=== PATIENT | female | born 1975 | race Caucasian/White ===

== ENCOUNTER 2022-03-06 17:42 | Emergency (ER) | payer OTHER, SELFPAY ==
--- NOTE | ~2022-03-06 | CT_ITS ---
EXAMINATION: CT brain wo con DATE: 03/06/2022 20:42 INDICATION: syncope, HYPERTENSION . TECHNIQUE: Computed tomography (CT) of the head was performed without intravenous contrast. The mA wa s adjusted according to patient size. Iterative reconstruction technique was employed. The dose-lengt h product was 605.33 mGy-cm. COMPARISON: None FINDINGS: No acute intracranial hemorrhage or extra-axial fluid collection. No hydrocephalus, mass, or herniation. No acute ischemic infarct. Unremarkable dural venous sinus attenuation. No acute osseous abnormality. The aerated spaces are clear. 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 Mild atrophy and chronic white matter change. Atherosclerotic intracranial calcifications. IMPRESSION: No acute intracranial process. Reviewed, dictated and finalized at location K.
--- NOTE | ~2022-03-06 | XR_ITS ---
EXAMINATION: XR chest 1V Exam Date/Time: 03/06/2022 20:42 CDT HISTORY: syncope, hx htn and bronchitis Comparison: None available. RESULT: Lines, tubes, and devices: None. Lungs and pleura: Clear. Cardiomediastinal silhouette: Normal cardiomediastinal silhouette. Other: No acute osseous or upper abdominal finding. IMPRESSION: No acute cardiopulmonary process. Reviewed, dictated and finalized at location K.
--- NOTE | 2022-03-06 17:45 | ECG_ITS ---
Measurements Intervals [place] Rate: 73 P: 42 CO: 138 QRS: 5 QRSD: 91 T: 25 QT: 387 QTc: 427 Interpretive Statements SINUS RHYTHM NO PREVIOUS ECG AVAILABLE FOR COMPARISON Electronically Signed On 03-06-2022 19:44:09 CDT by Kanwal Melvin M.D.
[2022-03-06 17:52] VITALS: BP 194/98; PULSE 89; RESP 16; TEMP 37; O2SAT 99
[2022-03-06 18:04] LABS: Basophils Percent Auto 0.6 % (0.2-1.2); Eosinophils Absolute Auto 0.3 K/mm3 (0-0.3); Eosinophils Percent Auto 4.1 % (0-4.4); Hematocrit 43.4 % (37.0-47.0); Hemoglobin 14.4 g/dL (12.0-15.0); Immature Granulocyte Absolute 0.02 K/mm3 (0.00-0.031); Immature Granulocyte Percent A 0.3 % (0-0.5); Lymphocytes Absolute Auto 1.28 K/mm3 (0.9-3.2); Lymphocytes Percent Auto 19.6 % (18.3-44.2); Mean Corpuscular HGB Conc 33.2 g/dl (32-36); Mean Corpuscular Volume 90.4 fl (80-100); Mean Platelet Volume 9.8 fl (7.4-10.4); Monocytes Absolute Auto 0.8 K/mm3 (0.1-0.6); Monocytes Percent Auto 11.5 % (2.6-8.5); Neutrophils Absolute Auto 4.2 K/mm3 (1.3-6.7); Neutrophils Percent Auto 63.9 % (45.5-73.1); Platelet Count Result 198 k/mm3 (150-375); White Blood Count 6.5 K/mm3 (4.5-10.0)
[2022-03-06 18:13] LABS: Alanine Aminotransferase 187 U/L (6-35); Albumin Level 3.5 g/dL (3.5-5.1); Alkaline Phosphatase 112 U/L (38-126); Anion Gap 2 mmol/L (8-16); Aspartate Amino Transferase 100 U/L (14-36); Bilirubin,Total 0.3 mg/dL (0.2-1.3); Blood Urea Nitrogen 12 mg/dL (7-17); Calcium 8.5 mg/dL (8.4-10.2); Carbon Dioxide 29 mmol/L (22-30); Chloride 106 mmol/L (98-107); Estimated CRCL calculation 86 ml/min; Estimated Glomerular Filt Rate > 60; Glucose 81 mg/dL (65-110); Potassium 3.9 mmol/L (3.4-5.0); Sodium 137 mmol/L (137-145)
[2022-03-06 20:24] VITALS: BP 149/95; PULSE 82
[2022-03-06 20:26] VITALS: BP 161/103; BP 170/88; PULSE 69; PULSE 76
[2022-03-06 20:27] VITALS: BP 142/88; PULSE 73; RESP 20; TEMP 36.5; O2SAT 98
--- NOTE | 2022-03-06 20:30 | ED.SYNCOPE ---
HPI - Syncope General Chief Complaint: Syncope Stated Complaint: DIZZY, PASSING OUT' Time Seen by Provider: 03/06/22 19:56 History of Present Illness HPI narrative: pt says walking earlier today and passed out says has been happening a lot over the last few months and hasn't seen anyone for it, has tubal says not preg no f;nv/d/uri/cp/sob/abd pain/other neuro cahgnes/trauma/urine cahgnes denies etoh but does smoke and does use meth often says not daily. no wells/vision chagnes no neck/back changes Related Data Allergies Allergy/AdvReac Type Severity Reaction Status Date / Time codeine Allergy Unknown RASH Verified 03/06/22 21:33 Review of Systems Constitutional: Comments: CONSTITUTIONAL: Denies fever, chills, or sweats. say passed out no injury EYES: Denies visual changes, redness, or discharge. ENT: Denies rhinorrhea, congestion, sore throat, or otalgia. CARDIOVASCULAR: Denies chest pain, palpitations, or edema. RESPIRATORY: Denies cough or dyspnea. GASTROINTESTINAL: Denies abdominal pain, nausea, vomiting, or diarrhea. GENITOURINARY: Denies dysuria or hematuria. SKIN: Denies rash or itching. MUSCULOSKELETAL: Denies back pain, joint pain, or myalgia. NEUROLOGIC: Denies headache, numbness, or weakness. PSYCHIATRIC: Denies anxiety or depression. Exam Const: Other: APPEARANCE: Well appearing, no pain in distress, well-nourished. Head normocephalic atraumtaic. EYES: PERRLA/EOMI, conjunctivae very clear. NOSE: Normal no drainage EARS:TMS clear Shira Liu, with good light reflex. THROAT: Pharynx clear, no exudate. NECK: Supple. No adenopathy, no masses. RESPIRATORY: Airway patent, repsirations nonlabored. Clear to auscultation bilaterally, no rales, rhonchi, wheezing. CARDIOVASCULAR: Regular rate and rhythm without murmurs rubs or gallops. ABDOMINAL: Soft, nontender, nondistended, no hepatosplenomegally MUSCULOSKELETAl: Moves all extremities. Strenght/ROM intact, No edema, No calf tenderness. NEURO: Alert. Cranial nerves II through XII intact. Good gait. Good coordination SKIN:: Warm, dry. Normal Color PSYCHIATRIC: Normal affect/mood, normal interaction with parents. tearful when talking but good eye contact for me compared to initial triage note no s/h ideation Course Course Emergency Course: pt is not orthostatic at 2030 called lab at 210 abut add on tests not running will start but analyizer difficulties with etoh so may not get back for hours which is fine no etoh smell on pt doubtful cause just part of w/u Reevaluation(s) Reevaluation #1: pt good with plan, mom called asking if going home told her yes adn stated pt has lump on back so asked pt who states has been there for yrs right mid axillary no new changes doc in [place] told her sebacious cyst way back then looked at it and almost raquetball size nt semi solid nt and mobile no s/s infection explained likely this given there so long will refer pt to primary and surgeon given no docs and this longstnading issue, pt good with plan and home with abx for urine infection and we disucussed meth abuse not helping her symptoms pt aware needs to stop Vital Signs Vital signs: Vital Signs Temperature 37.0 C 03/06/22 17:52 Pulse Rate 89 03/06/22 17:52 Respiratory Rate 16 03/06/22 17:52 Blood Pressure 194/98 H 03/06/22 17:52 Pulse Oximetry 99 03/06/22 17:52 Oxygen Delivery Room Air 03/06/22 17:52 Temperature 36.5 C 03/06/22 20:27 Pulse Rate 73 03/06/22 20:27 Respiratory Rate 20 03/06/22 20:27 Blood Pressure 142/88 H 03/06/22 20:27 Pulse Oximetry 98 03/06/22 20:27 Oxygen Delivery Room Air 03/06/22 20:27 MDM - Syncope Lab Data Result diagrams: 03/06/22 17:56 03/06/22 17:56 Labs: Lab Results 03/06/22 03/06/22 03/06/22 Range/Units 17:56 17:56 21:06 WBC 6.5 (4.5-10.0) K/mm3 RBC 4.80 (4.2-5.4) M/mm3 Hgb 14.4 (12.0-15.0) g/dL Hct 43.4 (37.0-47.0) % MCV 90.4 (80-100) fl MCH
[2022-03-06 21:22] LABS: Creatine Kinase 25 U/L (30-135)
[2022-03-06 21:27] LABS: Ethanol < 10 mg/dL (<10)
[2022-03-06] MEDS: SODIUM CHLORIDE 0.9% IV 1,000 ML 999 ML IV CONT (21:45)
[2022-03-06 21:52] LABS: Appearance Urine Slightly Cloudy (Clear); Bilirubin Urine Negative (Negative); Blood Urine Negative (Negative); Color Urine Yellow (Yellow); Glucose Urine UA Negative (Negative); Ketones Urine Trace mg/dL (Negative); Leukocyte Esterase Ur Trace LEU/UL (Negative); Nitrate Urine Positive (Negative); Protein Urine Negative (Negative); Urobilinogen Urine 0.2 mg/dL (<2.0)
[2022-03-06 22:04] LABS: Bacteria Urine Trace /hpf; Mucus Urine Rare /lpf; RBC Urine 0-2 /hpf (0-2); Squamous Epithelial Cell Urine Many /hpf (Few); WBC Urine 16-20 /hpf
[2022-03-06 22:05] LABS: Add Urine Microscopic? YES
[2022-03-06 22:26] LABS: Thyroid Stimulating Hormone Reflex 0.846 uIU/mL (0.465-4.68)
[2022-03-06] MEDS: ACETAMINOPHEN 325 MG TABLET 650 MG PO (22:36)
[2022-03-06] MEDS: NITROFURANTOIN MONOHYD MACROCR 100 MG CAP PO (22:40)
[2022-03-06 22:43] LABS: Barbiturate Screen Urine Negative (Negative); Benzodiazepines Screen Urine Negative (Negative)
[2022-03-06 22:55] LABS: Cannabinoid Screen Urine Negative (Negative); Cocaine Screen Urine Negative (Negative); Methadone Screen Urine Negative (Negative); Opiate Screen Urine Negative (Negative); Phencyclidine Screen Urine Negative (Negative)
[2022-03-06 23:05] VITALS: BP 130/64; PULSE 77; RESP 18; O2SAT 97
[2022-03-06 23:16] LABS: Amphetamine Screen Urine Positive (Negative)
== END 2022-03-06 23:05 | disposition home or self-care (01) ==
PROVIDERS: Emergency Medicine; Emergency Provider Emergency Medicine
DX: R55 Syncope and collapse (principal); R22.2 Localized swelling, mass and lump, trunk; F15.10 Other stimulant abuse, uncomplicated
CPT/HCPCS: 36415; 70450; 71045; 80053; 80307; 81001; 81025; 82550; 84443; 85025; 87077; 87086; 87088; 87186; 93005; 96360; 99284; A9270; J7030

== ENCOUNTER 2023-07-21 12:47 | Emergency (ER) | payer OTHER, SELFPAY ==
[2023-07-21] VITALS (14 sets, daily range): BP systolic 160–205; BP diastolic 84–121; PULSE 70–85; RESP 16–20; TEMP 36.6–36.9; O2SAT 92–100
--- NOTE | ~2023-07-21 | CT_ITS ---
EXAMINATION: CT abdomen pelvis w con DATE: 07/21/2023 14:10 INDICATION: R flank pain radiating to midline and L flank TECHNIQUE: Computed tomography (CT) of the abdomen and pelvis was performed with 100 mL Omnipaque-350 intravenous contrast. Automated exposure control and iterative reconstruction technique were employe d. The dose-length product was 430.58 mGy-cm. COMPARISON: None. FINDINGS: Lower thorax: Unremarkable Liver: Normal. Biliary/Gallbladder: Gallbladder is normal. No bile duct dilation. Pancreas: No mass. Dilation of the main pancreatic duct up to 5 mm. Spleen: Normal. Adrenals:No mass. Kidneys: No suspicious mass, obstructing stone, or hydronephrosis. GI tract: Mild distal esophageal and gastric wall edema. No small or large bowel dilation. Normal brittani endix. Mesentery/Peritoneum: No ascites, mass, or free air. Retroperitoneum: No mass. Atherosclerotic abdominal aortic and/or arterial calcifications. Pelvis: Pelvic organs are within normal limits. Soft Tissues: Soft tissues and body wall unremarkable. Bones: No acute osseous finding. IMPRESSION: Mild esophagitis/gastritis. Dilated main pancreatic duct. No mass or obstructing stone detected. Correlate with pancreatic enzyme s. Reviewed, dictated and finalized at location K. E ADMINISTRATION SUPERVISOR IMPRESSION: Mild esophagitis/gastritis. Dilated main pancreatic duct. No mass or obstructing stone detected. Correlate with pancreatic enzymes.
--- NOTE | ~2023-07-21 | XR_ITS ---
EXAMINATION: XR chest 1V portable DATE: 07/21/2023 13:53 INDICATION: Cough and shortness of breath. TECHNIQUE: A single frontal view of the chest was obtained on 2 radiographs. COMPARISON: Chest single view 03/06/2022 FINDINGS: There is no pneumonia, pleural effusion, or pneumothorax. The heart size is normal. There i s an old healed fracture of left clavicle. IMPRESSION: 1. No acute cardiopulmonary disease. Reviewed, dictated and finalized at location A. ATOR
--- NOTE | 2023-07-21 13:22 | ED.BACK ---
HPI - Back Pain/Injury General Chief Complaint: Back Pain/Injury Stated Complaint: back pain Time Seen by Provider: 07/21/23 13:01 History of Present Illness HPI Narrative: 47-year-old female presenting with lower back pain. Patient states that for the last several days she has had flank pain that is worse on the right. States that it does radiate into her left flank. She complains of dysuria. No hematuria. No abdominal pain, nausea or vomiting, diarrhea, constipation. No chest pain or shortness of breath. States that she has had a cough for the last couple of days. No fevers or chills, numbness or weakness, leg swelling, rashes. Related Data Allergies Allergy/AdvReac Type Severity Reaction Status Date / Time codeine Allergy Unknown RASH Verified 07/21/23 12:50 Review of Systems Review of Systems: All systems reviewed & are unremarkable except as noted in HPI and below Exam Narrative: GENERAL: Disheveled, crying, cooperative HEAD: Normocephalic, atraumatic. EYES: PERRLA and EOMI. ENT: Mucous membranes moist. NECK: Supple. CHEST: Clear to auscultation. No respiratory distress. HEART: Regular rate and rhythm ABDOMEN: Soft, nontender, nondistended; mild bilateral CVA tenderness BACK: No midline tenderness EXTREMITIES: Normal range of motion. No edema. SKIN: Warm, dry, no rash. Large cyst left side of abdominal wall the patient states has been there for years NEURO: No focal deficits. Alert and oriented x3. PSYCH: Tearful Course Vital Signs Vital signs: Vital Signs Temperature 98.4 F 07/21/23 12:52 Pulse Rate 85 07/21/23 12:52 Respiratory Rate 16 07/21/23 12:52 Blood Pressure 205/121 H 07/21/23 12:52 Pulse Oximetry 97 07/21/23 12:52 Temperature 97.9 F 07/21/23 12:57 Pulse Rate 70 07/21/23 13:35 Respiratory Rate 16 07/21/23 13:35 Blood Pressure 166/87 H 07/21/23 15:16 Pulse Oximetry 100 07/21/23 15:17 Oxygen Delivery Room Air 07/21/23 12:57 MDM - Back Pain/Injury MDM Narrative Medical decision making narrative: 47-year-old female presenting with lower back pain. Patient is hypertensive, otherwise vitals are within normal limits. Exam remarkable for the above. Plan for blood work, CT abdomen pelvis, pain control, fluids. Blood work with mild leukocytosis. CT abdomen pelvis with mild esophagitis and dilated pancreatic duct. Her lipase is normal. She denies any abdominal pain. Only complaining of bilateral flank pain. There is no evidence of pyelonephritis. Her UA is concerning for UTI. She was given a dose of Keflex. Remainder of her work-up is unremarkable. Feel she is safe for outpatient management. Advised that she follow-up with her PCP and complete the antibiotics as prescribed. Discharged in stable condition. Differential Diagnosis Differential diagnosis: Likely strain of lumbar region, renal colic, pyelonephritis and other (UTI, lower back pain, dehydration, JENNIFFER) Medical Records Attestation: I reviewed the patient's medical records. Lab Data Attestation: I reviewed the patient's lab results. 07/21/23 13:30 07/21/23 13:30 Labs: Lab Results 07/21/23 07/21/23 07/21/23 Range/Units 13:27 13:30 16:08 WBC 10.4 H (4.5-10.0) K/mm3 RBC 5.40 (4.2-5.4) M/mm3 Hgb 16.6 H (12.0-15.0) g/dL Hct 50.1 H (37.0-47.0) % MCV 92.8 (80-100) fl MCH 30.7 (26-34) pg MCHC 33.1 (32-36) g/dl RDW 12.3 (11.5-14.5) % Plt Count 226 (150-375) k/mm3 MPV 10.2 (7.4-10.4) fl Immature Gran % (Auto) 0.3 (0-0.5) % Neut % (Auto) 68.5 (45.5-73.1) % Lymph % (Auto) 21.7 (18.3-44.2) % Mcdonald % (Auto) 6.4 (2.6-8.5) % Eos % (Auto) 2.6 (0-4.4) % Baso % (Auto) 0.5 (0.2-1.2) % Lymph # (Auto) 2.25 (0.9-3.2) K/mm3 Mcdonald # (Auto) 0.7 H (0.1-0.6) K/mm3 Eos # (Auto) 0.3 (0-0.3) K/mm3 Baso # (Auto) 0.1 (0.0-0.1) K/mm3 Abs Immat Gran (auto) 0.03 (0.00-0.031) K/mm3 Ab
[2023-07-21] MEDS: SODIUM CHLORIDE 0.9% IV 1,000 ML 999 ML IV CONT (13:33)
[2023-07-21] MEDS: KETOROLAC 30 MG/ML VIAL (*BKC) IV PUSH (13:34)
[2023-07-21] MEDS: HYDROmorphone HCL INJ (*CRX) 1 MG/ML SYR IV PUSH (13:34)
[2023-07-21 13:35] LABS: Basophils Absolute Auto 0.1 K/mm3 (0.0-0.1); Basophils Percent Auto 0.5 % (0.2-1.2); Eosinophils Absolute Auto 0.3 K/mm3 (0-0.3); Eosinophils Percent Auto 2.6 % (0-4.4); Hematocrit 50.1 % (37.0-47.0); Hemoglobin 16.6 g/dL (12.0-15.0); Immature Granulocyte Absolute 0.03 K/mm3 (0.00-0.031); Immature Granulocyte Percent A 0.3 % (0-0.5); Lymphocytes Absolute Auto 2.25 K/mm3 (0.9-3.2); Lymphocytes Percent Auto 21.7 % (18.3-44.2); Mean Corpuscular HGB Conc 33.1 g/dl (32-36); Mean Corpuscular Hemoglobin 30.7 pg (26-34); Mean Corpuscular Volume 92.8 fl (80-100); Mean Platelet Volume 10.2 fl (7.4-10.4); Monocytes Absolute Auto 0.7 K/mm3 (0.1-0.6); Monocytes Percent Auto 6.4 % (2.6-8.5); Neutrophils Absolute Auto 7.1 K/mm3 (1.3-6.7); Neutrophils Percent Auto 68.5 % (45.5-73.1); Platelet Count Result 226 k/mm3 (150-375); Red Cell Distribution Width 12.3 % (11.5-14.5); White Blood Count 10.4 K/mm3 (4.5-10.0)
[2023-07-21 13:51] LABS: Alanine Aminotransferase 21 U/L (6-35); Alkaline Phosphatase 96 U/L (38-126); Anion Gap 8 mmol/L (8-16); Aspartate Amino Transferase 28 U/L (14-36); Bilirubin,Total 0.5 mg/dL (0.2-1.3); Blood Urea Nitrogen 16 mg/dL (7-17); Calcium 9.3 mg/dL (8.4-10.2); Carbon Dioxide 26 mmol/L (22-30); Chloride 106 mmol/L (98-107); Estimated CRCL calculation 75 ml/min; Estimated Glomerular Filt Rate > 60; Glucose 102 mg/dL (65-110); Lipase 183 U/L (23-300); Sodium 140 mmol/L (137-145)
[2023-07-21 14:12] LABS: Influenza A QL RT-PCR Negative (Negative); Influenza B QL RT-PCR Negative (Negative); SARS-CoV-2 RNA PCR Negative (Negative)
[2023-07-21 16:19] LABS: Appearance Urine Clear (Clear); Bacteria Urine None Seen /hpf; Bilirubin Urine Negative (Negative); Blood Urine Trace (Negative); Color Urine Yellow (Yellow); Glucose Urine UA Negative (Negative); Ketones Urine Negative (Negative); Leukocyte Esterase Ur 1+ LEU/UL (Negative); Nitrate Urine Negative (Negative); Non Pathogenic Casts 0-2; Protein Urine Negative (Negative); RBC Urine 0-2 /hpf (0-2); Squamous Epithelial Cell Urine None seen /hpf (Few); Urobilinogen Urine 0.2 mg/dL (<2.0); WBC Urine 21-50 /hpf; pH Urine 6.5 (5.0-9.0)
[2023-07-21 16:29] LABS: Specific Grav Ur 1.046 (1.001-1.035)
[2023-07-21 16:30] LABS: Add Urine Microscopic? YES
[2023-07-21] MEDS: CEPHALEXIN 500 MG CAPSULE PO (16:47)
== END 2023-07-21 17:06 | disposition home or self-care (01) ==
PROVIDERS: Emergency Provider Emergency Medicine
DX: N39.0 Urinary tract infection, site not specified (principal); K29.70 Gastritis, unspecified, without bleeding; K20.90 Esophagitis, unspecified without bleeding
CPT/HCPCS: 36415; 71045; 74177; 80053; 81001; 83690; 85025; 87086; 87636; 96361; 96374; 96375; 99284; A9270; J1170; J1885; J7030; Q9967

== ENCOUNTER 2024-08-20 14:04 | Emergency (ER) | payer OTHER, SELFPAY ==
--- NOTE | ~2024-08-20 | CT_ITS ---
EXAMINATION: CT abdomen pelvis wo con DATE: 08/20/2024 15:08 INDICATION: Right flank pain TECHNIQUE: Computed tomography (CT) of the abdomen and pelvis was performed without intravenous contr ast. Automated exposure control and iterative reconstruction technique were employed. The dose-length product was 178.97 mGy-cm. COMPARISON: 07/21/2023 FINDINGS: Minimal dependent atelectasis in bilateral lower lobes. No pleural effusion. Heart size is normal. At herosclerotic coronary artery calcification. Unchanged minimal pericardial effusion. Liver, gallbladd er, spleen, pancreas, bilateral adrenal glands and kidneys are normal. No renal stones or stones seen along the course of the ureters. No hydronephrosis. Unchanged pattern of phleboliths in the pelvis a nd atherosclerotic calcifications along the abdominal aorta and bilateral iliac arteries. Bladder, an teverted uterus and bilateral adnexa are unremarkable. Moderate amount of stool scattered throughout the colon. No bowel obstruction. Normal appendix. Small fat-containing umbilical hernia. No free intr aperitoneal gas or fluid. No pathologically enlarged abdominal or pelvic lymphadenopathy. Mild lumbar spondylosis with multilevel facet osteoarthritis, severe bilaterally at L4-L5 and otherwise mild to moderate. IMPRESSION: 1. No acute intra-abdominal/pelvic process. Specifically normal appendix and no urolithiasis. Reviewed, dictated and finalized at location A. CARE NURSE
[2024-08-20 14:10] VITALS: BP 180/109; PULSE 96; RESP 20; TEMP 37.1; O2SAT 98
--- NOTE | 2024-08-20 14:37 | ED.FEMALEGU ---
HPI - Female Genitourinary General Chief complaint: Urogenital-Female <Jemal Cline PA-C - Last Filed: 08/20/24 18:01> Stated complaint: kidney stone <Jemal Cline PA-C - Last Filed: 08/20/24 18:01> Time Seen by Provider: 08/20/24 14:37 <Jemal Cline PA-C - Last Filed: 08/20/24 18:01> Source: patient <OLIVER Tabor Last Filed: 08/20/24 18:01> Mode of arrival: ambulatory <OLIVER Tabor Last Filed: 08/20/24 18:01> Limitations: no limitations <Jemal Cline PA-C - Last Filed: 08/20/24 18:01> History of Present Illness HPI Narrative: This is a 48-year-old female who presents to the ED with chief complaint right flank pain over the past 2 days. Reports that she thinks she may have a kidney stone as she has had these in the past. Reports the pain has been increasing but does not radiate. Reports dysuria but no hematuria. Denies fevers, chills, diarrhea, chest pain, shortness of breath or any vaginal complaints. <Jemal Cline PA-C - Last Filed: 08/20/24 18:01> Related Data Allergies/Adverse reactions: Allergies Allergy/AdvReac Type Severity Reaction Status Date / Time codeine Allergy Unknown RASH Verified 08/20/24 15:27 <Jemal Cline PA-C - Last Filed: 08/20/24 18:01> Review of Systems Review of Systems: All systems as dictated in HPI <Jemal Cline PA-C - Last Filed: 08/20/24 18:01> Exam Narrative: GENERAL: Well-appearing, well-nourished, and in no acute distress. HEAD: Normocephalic, atraumatic. EYES: PERRLA and EOMI. ENT: Nares clear, no rhinorrhea or epistaxis. Mucous membranes moist. Oropharynx without tonsillar hypertrophy exudate or other lesions. NECK: Supple. No adenopathy or masses. CHEST: No respiratory distress. Clear to auscultation. No wheezes rales or rhonchi HEART: Regular rate and rhythm. No murmur heard. Normal peripheral pulses. ABDOMEN: Right flank tenderness present. Negative left flank tenderness. Soft, otherwise nontender, nondistended, normal active bowel sounds. MSK: Normal range of motion. No edema. SKIN: Warm, dry, no rash. NEURO: Alert and oriented x4. No focal deficits. PSYCH: Normal mood and affect. <Jemal Cline PA-C - Last Filed: 08/20/24 18:01> Course CERTIFIED PROFESSIONAL MIDWIFE/PA Physician Supervision I agree with midlevel documentation; I performed the medical decision making component of this evaluation. <Silvana Vasquez MD - Last Filed: 08/20/24 18:40> Vital Signs Vital signs: Vital Signs Temperature 98.7 F 08/20/24 14:10 Pulse Rate 96 08/20/24 14:10 Respiratory Rate 20 08/20/24 14:10 Blood Pressure 180/109 H 08/20/24 14:10 Pulse Oximetry 98 08/20/24 14:10 Oxygen Delivery Room Air 08/20/24 14:10 Temperature 98.7 F 08/20/24 14:10 Pulse Rate 78 08/20/24 16:51 Respiratory Rate 17 08/20/24 16:51 Blood Pressure 129/72 08/20/24 16:51 Pulse Oximetry 98 08/20/24 16:51 Oxygen Delivery Room Air 08/20/24 14:10 <Jemal Cline PA-C - Last Filed: 08/20/24 18:01> Vital Signs Temperature 98.7 F 08/20/24 14:10 Pulse Rate 96 08/20/24 14:10 Respiratory Rate 20 08/20/24 14:10 Blood Pressure 180/109 H 08/20/24 14:10 Pulse Oximetry 98 08/20/24 14:10 Oxygen Delivery Room Air 08/20/24 14:10 Temperature 98.7 F 08/20/24 14:10 Pulse Rate 78 08/20/24 16:51 Respiratory Rate 17 08/20/24 16:51 Blood Pressure 129/72 08/20/24 16:51 Pulse Oximetry 98 08/20/24 16:51 Oxygen Delivery Room Air 08/20/24 14:10 <Silvana Vasquez MD - Last Filed: 08/20/24 18:40> MDM - Female Genitourinary MDM Narrative Medical decision making narrative: This is a 48-year-old female who presents to the ED for chief complaint of right flank pain and urinary burning. Vitals are normal. Afebrile. Exam shows mild right flank tenderness and no left flank tenderness. Normal white count on the CBC. She remarkable. Urinalysis shows over UTI with nitrite positive urine, 2+ leuk esterase. Cultures pending CT abdomen pelvis with IV contrast: IMPRESSION: 1. No acute intra-abdominal/pelvic process. Specifically normal appendix and no urolithiasis. Patient improved with fluids, antiemetics and pain medications. She was also given IV Rocephin. On re-evaluation she is doing better and feels that she can treat this at home. Will send Rx for Zofran, cefdinir, [place] for breakthrough pain. Patient will be discharged in stable condition. Supportive measures discussed and return precautions given. Patient is understanding and agreeable with plan for discharge with PCP follow-up. <Jemal Cline PA-C - Last Filed: 08/20/24 18:01> Lab Data Result diagrams: 08/20/24 15:28 08/20/24 15:28 <Jemal Cline PA-C - Last Filed: 08/20/24 18:01> Labs: Lab Results 08/20/24 08/20/24 Range/Units 15:28 16:11 WBC 8.3 (4.5-10.0) K/mm3 RBC 4.69 (4.2-5.4) M/mm3 Hgb 14.9 (12.0-15.0) g/dL Hct 43.0 (37.0-47.0) % MCV 91.7 (80-100) fl MCH 31.8 (26-34) pg MCHC 34.7 (32-36) g/dl RDW 11.8 (11.5-14.5) % Plt Count 189 (150-375) k/mm3 MPV 10.3 (7.4-10.4) fl Immature Gran % (Auto) 0.5 (0-0.5) % Neut % (Auto) 66.1 (45.5-73.1) % Lymph % (Auto) 22.0 (18.3-44.2) % [place] % (Auto) 8.5 (2.6-8.5) % Eos % (Auto) 2.3 (0-4.4) % Baso % (Auto) 0.6 (0.2-1.2) % Lymph # (Auto) 1.82 (0.9-3.2) K/mm3 [place] # (Auto) 0.7 H (0.1-0.6) K/mm3 Eos # (Auto) 0.2 (0-0.3) K/mm3 Baso # (Auto) 0.1 (0.0-0.1) K/mm3 Abs Immat Gran (auto) 0.04 H (0.00-0.031) K/mm3 Absolute Neuts (auto) 5.5 (1.3-6.7) K/mm3 Absolute Nucleated RBC 0.000 (0.0-0.012) K/mm3 Nucleated RBC % 0.0 (0.0-0.2) % Sodium 139 (137-145) mmol/L Potassium 3.7 (3.4-5.0) mmol/L Chloride 110 H (98-107) mmol/L Carbon Dioxide 26 (22-30) mmol/L Anion Gap 3 L (4-12) mmol/L BUN 13 (7-17) mg/dL Creatinine 0.70 (0.7-1.0) mg/dL Estim Creat Clear Calc 74 ml/min Estimated GFR > 60 (59 - ) Glucose 74 (65-110) mg/dL Calcium 8.8 (8.4-10.2) mg/dL Total Bilirubin 0.5 (0.2-1.3) mg/dL AST 22 (14-36) U/L ALT 17 (6-35) U/L Alkaline Phosphatase 120 (38-126) U/L Total Protein 7.0 (6.3-8.2) g/dL Albumin 3.6 (3.5-5.1) g/dL Lipase 134 (23-300) U/L Urine Color Dark yellow (Yellow) Urine Appearance Cloudy H (Clear) Urine pH 5.0 (5.0-9.0) Ur Specific [place] 1.032 (1.001-1.035) Urine Protein 1+ H (Negative) mg/dL Urine Glucose (UA) Negative (Negative) mg/dL Urine Ketones Trace H (Negative) mg/dL Ur Blood (Man) Trace (Negative) Urine Nitrate Positive H (Negative) Urine Bilirubin 1+ H (Negative) Urine Urobilinogen 1.0 (<2.0) mg/dL Leukocyte Esterase Rfl 2+ H (Negative) ORLIN/UL Urine RBC 0-2 (0-2) /hpf Urine WBC 4-6 H (0-3) /hpf Ur Squamous Epith Cells Occasional (Few) /hpf Calcium Oxalate Crystal Present (None) /hpf Urine Bacteria 2+ /hpf <Jemal Cline PA-C - Last Filed: 08/20/24 18:01> Lab Results 08/20/24 08/20/24 Range/Units 15:28 16:11 WBC 8.3 (4.5-10.0) K/mm3 RBC 4.69 (4.2-5.4) M/mm3 Hgb 14.9 (12.0-15.0) g/dL Hct 43.0 (37.0-47.0) % MCV 91.7 (80-100) fl MCH 31.8 (26-34) pg MCHC 34.7 (32-36) g/dl RDW 11.8 (11.5-14.5) % Plt Count 189 (150-375) k/mm3 MPV 10.3 (7.4-10.4) fl Immature Gran % (Auto) 0.5 (0-0.5) % Neut % (Auto) 66.1 (45.5-73.1) % Lymph % (Auto) 22.0 (18.3-44.2) % Twiggs % (Auto) 8.5 (2.6-8.5) % Eos % (Auto) 2.3 (0-4.4) % Baso % (Auto) 0.6 (0.2-1.2) % Lymph # (Auto) 1.82 (0.9-3.2) K/mm3 Tw[place]gs # (Auto) 0.7 H (0.1-0.6) K/mm3 Eos # (Auto) 0.2 (0-0.3) K/mm3 Baso # (Auto) 0.1 (0.0-0.1) K/mm3 Abs Immat Gran (auto) 0.04 H (0.00-0.031) K/mm3 Absolute Neuts (auto) 5.5 (1.3-6.7) K/mm3 Absolute Nucleated RBC 0.000 (0.0-0.012) K/mm3 Nucleated RBC % 0.0 (0.0-0.2) % Sodium 139 (137-145) mmol/L Potassium 3.7 (3.4-5.0) mmol/L Chloride 110 H (98-107) mmol/L Carbon Dioxide 26 (22-30) mmol/L Anion Gap 3 L (4-12) mmol/L BUN 13 (7-17) mg/dL Creatinine 0.70 (0.7-1.0) mg/dL Estim Creat Clear Calc 74 ml/min Estimated GFR > 60 (59 - ) Glucose 74 (65-110) mg/dL Calcium 8.8 (8.4-10.2) mg/dL Total Bilirubin 0.5 (0.2-1.3) mg/dL AST 22 (14-36) U/L ALT 17 (6-35) U/L Alkaline Phosphatase 120 (38-126) U/L Total Protein 7.0 (6.3-8.2) g/dL Albumin 3.6 (3.5-5.1) g/dL Lipase 134 (23-300) U/L Urine Color Dark yellow (Yellow) Urine Appearance Cloudy H (Clear) Urine pH 5.0 (5.0-9.0) Ur Specific [place] 1.032 (1.001-1.035) Urine Protein 1+ H (Negative) mg/dL Urine Glucose (UA) Negative (Negative) mg/dL Urine Ketones Trace H (Negative) mg/dL Ur Blood (Man) Trace (Negative) Urine Nitrate Positive H (Negative) Urine Bilirubin 1+ H (Negative) Urine Urobilinogen 1.0 (<2.0) mg/dL Leukocyte Esterase Rfl 2+ H (Negative) ORLIN/UL Urine RBC 0-2 (0-2) /hpf Urine WBC 4-6 H (0-3) /hpf Ur Squamous Epith Cells Occasional (Few) /hpf Calcium Oxalate Crystal Present (None) /hpf Urine Bacteria 2+ /hpf <Silvana Vasquez MD - Last Filed: 08/20/24 18:40> Discharge Plan Discharge Clinical Impression: Pyelonephritis <Jemal Cline PA-C - Last Filed: 08/20/24 18:01> Patient Disposition: Home, Self-Care <Jemal Cline PA-C - Last Filed: 08/20/24 18:01> Condition: Stable <OLIVER Tabor Last Filed: 08/20/24 18:01> Instructions: Antibiotic Form, Urinary Tract Infection in Women (ED) <Jemal Cline PA-C - Last Filed: 08/20/24 18:01> Additional Instructions: Your exam and imaging today do show evidence of UTI but no kidney stone. Please take antibiotics as prescribed and follow-up with PCP. Use [place] for breakthrough pain. Otherwise use Tylenol and ibuprofen every 6 hours for pain control and fever control. If you have any new or worsening symptoms please return to the ER for further evaluation. <Jemal Cline PA-C - Last Filed: 08/20/24 18:01> Patient Language: Amharic <Jemal Cline PA-C - Last Filed: 08/20/24 18:01> Prescriptions: New cefdinir 300 mg capsule 300 mg PO Q12H 7 Days Qty: 14 0RF hydrocodone-acetaminophen 5-325 mg tablet 1 tablet PO Q8H PRN (Reason: pain) Qty: 12 0RF ondansetron 4 mg tablet,disintegrating 4 mg PO Q8H PRN (Reason: nausea and vomiting) Qty: 10 0RF No Action nitrofurantoin monohyd/m-cryst [Macrobid] 100 mg capsule 100 mg PO Q12H 3 Days Qty: 6 0RF Rx Instructions: must administer with a meal/food cephalexin 500 mg capsule 500 mg PO Q12H 7 Days Qty: 14 0RF <Jemal Cline PA-C - Last Filed: 08/20/24 18:01> Follow-up/Referrals: PHYSICIAN,SURVEILLANCE MANAGER [Non-Staff] - Travis Aceves MD [Physician] - <OLIVER Tabor Last Filed: 08/20/24 18:01> Time of Disposition: 16:47 <OLIVER Tabor Last Filed: 08/20/24 18:01> 16:47 <Silvana Vasquez MD - Last Filed: 08/20/24 18:40>
[2024-08-20] MEDS: SODIUM CHLORIDE 0.9% IV 1,000 ML 999 ML IV CONT (15:24)
[2024-08-20] MEDS: ONDANSETRON INJ 4 MG/2 ML VIAL IV PUSH (15:24)
[2024-08-20] MEDS: HYDROmorphone HCL INJ (*CRX) 1 MG/ML SYR 0.5 MG IV PUSH (15:24)
[2024-08-20] MEDS: KETOROLAC 15 MG/ML VIAL (*BKC) IV PUSH (15:25)
[2024-08-20 15:26] VITALS: BP 147/99; PULSE 79; RESP 17; O2SAT 96
[2024-08-20 15:42] LABS: Basophils Absolute Auto 0.1 K/mm3 (0.0-0.1); Basophils Percent Auto 0.6 % (0.2-1.2); Eosinophils Absolute Auto 0.2 K/mm3 (0-0.3); Eosinophils Percent Auto 2.3 % (0-4.4); Hemoglobin 14.9 g/dL (12.0-15.0); Immature Granulocyte Absolute 0.04 K/mm3 (0.00-0.031); Immature Granulocyte Percent A 0.5 % (0-0.5); Lymphocytes Absolute Auto 1.82 K/mm3 (0.9-3.2); Mean Corpuscular HGB Conc 34.7 g/dl (32-36); Mean Corpuscular Hemoglobin 31.8 pg (26-34); Mean Corpuscular Volume 91.7 fl (80-100); Mean Platelet Volume 10.3 fl (7.4-10.4); Monocytes Absolute Auto 0.7 K/mm3 (0.1-0.6); Monocytes Percent Auto 8.5 % (2.6-8.5); Neutrophils Absolute Auto 5.5 K/mm3 (1.3-6.7); Neutrophils Percent Auto 66.1 % (45.5-73.1); Platelet Count Result 189 k/mm3 (150-375); Red Blood Count 4.69 M/mm3 (4.2-5.4); Red Cell Distribution Width 11.8 % (11.5-14.5); White Blood Count 8.3 K/mm3 (4.5-10.0)
[2024-08-20 15:48] LABS: Alanine Aminotransferase 17 U/L (6-35); Albumin Level 3.6 g/dL (3.5-5.1); Alkaline Phosphatase 120 U/L (38-126); Anion Gap 3 mmol/L (4-12); Aspartate Amino Transferase 22 U/L (14-36); Bilirubin,Total 0.5 mg/dL (0.2-1.3); Blood Urea Nitrogen 13 mg/dL (7-17); Calcium 8.8 mg/dL (8.4-10.2); Carbon Dioxide 26 mmol/L (22-30); Chloride 110 mmol/L (98-107); Estimated CRCL calculation 74 ml/min; Estimated Glomerular Filt Rate > 60; Glucose 74 mg/dL (65-110); Lipase 134 U/L (23-300); Potassium 3.7 mmol/L (3.4-5.0); Sodium 139 mmol/L (137-145)
[2024-08-20 16:23] LABS: Add Urine Microscopic? YES; Appearance Urine Cloudy (Clear); Bilirubin Urine 1+ (Negative); Blood Urine Trace (Negative); Color Urine Dark Yellow (Yellow); Glucose Urine UA Negative (Negative); Ketones Urine Trace mg/dL (Negative); Leukocyte Esterase Ur 2+ LEU/UL (Negative); Nitrate Urine Positive (Negative); Protein Urine 1+ mg/dL (Negative); Specific Grav Ur 1.032 (1.001-1.035)
[2024-08-20 16:48] LABS: Calcium Oxalate Crystals Urine Present /hpf; RBC Urine 0-2 /hpf (0-2); Squamous Epithelial Cell Urine Occasional /hpf (Few)
[2024-08-20 16:49] LABS: Bacteria Urine 2+ /hpf
[2024-08-20 16:51] VITALS: BP 129/72; PULSE 78; RESP 17; O2SAT 98
[2024-08-20] MEDS: KETOROLAC 30 MG/ML VIAL (*BKC) IV PUSH (17:08)
== END 2024-08-20 17:22 | disposition home or self-care (01) ==
PROVIDERS: Emergency Medicine; Emergency Provider Physician Assistant
DX: N12 Tubulo-interstitial nephritis, not specified as acute or chronic (principal)
CPT/HCPCS: 36415; 74176; 80053; 81001; 83690; 85025; 87086; 87186; 96361; 96365; 96375; 96376; 99284; J0696; J1171; J1885; J2405; J7030